=== PATIENT | male | born 1945 | race Caucasian/White ===

== ENCOUNTER → 2017-01-22 | Outpatient (CLI) | payer OTHER ==
[~2017-01-22] VITALS: Ht 180.3 cm; Wt 95.3 kg
[~2017-01-22] MED LIST: ACID REFLUX; AMLODIPINE BESYL5 MG; ASPIRIN PO; ASPIRIN325 PO; AUGMENTIN 875875 M1 PO; CRESTOR40 MG PO; EFFIENT10 MG PO; EXFORGE 5-1601 EACH PO; EXFORGE PO; FISH OIL 1,001000 M1 PO; IBUPROFEN 200200 M1 PO; PACERONE 200 M200 MG PO; RANITIDINE HCL300 M1 PO; TOPROL XL100 MG; TOPROL XL50 MG PO; ZETIA10 MG PO
--- NOTE | ~2017-01-22 | P ---
[facility] [place] [address] PROCEDURE REPORT Name: AMAURY VIERA Room #: REG [facility].#: [id number] Admission: 01/22/17 Attend Phys: Jacob Giron Discharge: Date of : 43 Report #: [id number] THIS REPORT FOR: //name// CC: Jacob Barksdale MD DATE OF SERVICE: 01/22/2017 PROCEDURE PERFORMED: Upper endoscopy with biopsies. HISTORY OF PRESENT ILLNESS: The patient is a 71-year-old male with a Hemoccult positive stool, no history of anemia, no previous history of endoscopy. He does complain of intermittent heartburn, takes Zantac on a p.r.n. basis. He denies any dysphagia. Plan is for EGD and colonoscopy today. DESCRIPTION OF PROCEDURE: The risks and benefits of the procedure were explained to the patient, those risks including but not limited to bleeding, perforation, the risk of sedation. He understood these risks and gave informed consent. Sedation was given using propofol per anesthesia. Next, using a standard Daojiainon upper endoscope, the scope was placed in the patient's mouth and advanced under direct vision through the esophagus, stomach and into the second portion of the duodenum. The larynx was normal in appearance. The upper and mid esophagus was normal in appearance. In the distal esophagus, at the GE junction, there was evidence of grade A erosive esophagitis. No evidence of bleeding. There was a mild diffuse gastritis throughout the stomach. Biopsies were obtained to rule out H. pylori. No evidence of ulcerations or erosions. No bleeding was noted. The pylorus was normal and patent. Mild duodenitis was noted in the duodenal bulb, the first and second portion were all normal. The scope was then withdrawn and the procedure terminated. The patient tolerated the procedure well. IMPRESSION: 1. Grade A erosive esophagitis. 2. Mild diffuse gastritis. 3. Mild duodenitis. 4. Otherwise, normal upper endoscopy. RECOMMENDATIONS: 1. Await biopsy results. 2. Would recommend daily PPI therapy instead of Zantac. 3. We will proceed with colonoscopy next today. [facility] [address] [place] [address] PROCEDURE REPORT Name: AMAURY VIERA Room #: REG [facility] Stephie#: [id number] Admission: 01/22/17 Attend Phys: Jacob Giron Discharge: Date of : 43 Report #: [id number] Thank you for allowing me to participate in his care. By: [id number] Jacob Castrejon MD /nt
--- NOTE | ~2017-01-22 | P ---
[facility] [place] [address] PROCEDURE REPORT Name: AMAURY VIERA [id number] Admission: 01/22/17 Attend Phys: Jacob Giron Discharge: Date of : 43 Report #: [id number] THIS REPORT FOR: //name// CC: Jacob Barksdale MD DATE OF SERVICE: 01/22/2017 PROCEDURE PERFORMED: Colonoscopy with polypectomies. HISTORY OF PRESENT ILLNESS: The patient is a 71-year-old male with a Hemoccult positive stool. He denies any obvious blood in his stools. He has never had a colonoscopy in the past. There is no family history of colon cancer. DESCRIPTION OF PROCEDURE: The risks and benefits of the procedure were explained to the patient, those risks including but not limited to bleeding, perforation and the risk of sedation. He understood these risks and gave informed consent. Sedation was given using propofol per anesthesia. Next, a digital rectal exam was initially performed, which showed small external hemorrhoids, otherwise normal. Next, using a standard Fujinon colonoscope, the scope was placed in the patient's anus and advanced under direct vision to the cecum. The overall prep was excellent. In the cecum, there was a 3 mm sessile polyp. This was removed with cold forceps. Ascending colon, 5 mm sessile polyp removed by snare cautery, otherwise normal. Transverse colon, a 6 mm sessile polyp removed by snare cautery. In the descending colon, there were a total of 5 polyps. These range from 4-8 mm in size. All were removed by snare cautery. In the sigmoid colon, there were a total of 4 more polyps. These range in size from 5-10 mm, all were removed by snare cautery. In the rectum, there was a 3 mm sessile polyp. This was removed by cold forceps. Multiple diverticula were also noted in the sigmoid colon. There was no evidence of bleeding. However, the larger was polyp in the sigmoid colon did have a small amount of blood nearby. The scope was then withdrawn and the procedure terminated. The patient tolerated the procedure well. IMPRESSION: 1. Multiple colonic polyps as described above. 2. Sigmoid diverticulosis. 3. External hemorrhoids. RECOMMENDATIONS: 1. Await biopsy results. 2. Hemoccult positive stools, may have been secondary to gastritis or from larger polyps. 3. Would recommend a repeat colonoscopy in 3 years due to multiple polyps. [address] [address] PROCEDURE REPORT Name: AMAURY VIERA Room #: REG [facility] Card#: [id number] Admission: 01/22/17 Attend Phys: Jacob Giron Discharge: Date of : 43 Report #: [id number] Thank you for allowing me to participate in his care. By: [id number] Jacob Castrejon MD /charlotte
== END | disposition home or self-care (01) ==
LOC: GI 08:23
DX: K63.5 Polyp of colon (principal); K57.30 Diverticulosis of large intestine without perforation or abscess without bleeding; K64.4 Residual hemorrhoidal skin tags; K22.10 Ulcer of esophagus without bleeding; K29.70 Gastritis, unspecified, without bleeding; K29.80 Duodenitis without bleeding; K21.9 Gastro-esophageal reflux disease without esophagitis; I25.10 Atherosclerotic heart disease of native coronary artery without angina pectoris; I10 Essential (primary) hypertension; E78.00 Pure hypercholesterolemia, unspecified; Z95.1 Presence of aortocoronary bypass graft; Z87.891 Personal history of nicotine dependence

== ENCOUNTER → 2017-02-18 | Outpatient (CLI) | payer OTHER ==
[~2017-02-18] VITALS: Ht 180.3 cm; Wt 95.3 kg
--- NOTE | ~2017-02-18 | CATHLAB ---
[facility] [address] [place] [address] INVASIVE PROCEDURE REPORT Name: AMAURY VIERA [facility] [id number] Admission: 02/18/17 Attend Phys: Donald Newell MD Discharge: Date of : 43 Date of Service: 02/18/17 165 Report #: [id number] THIS REPORT FOR: //name// APPROVED REPORT Patient Details Patient Status: Out-Patient Room #: The patient is a 71 year-old male Event Personnel Donald Newell Telegraph Repeater Installer, Debby Starr RN RN, Martina Montana Sandifer, David Monitor, Sindy Ornelas Monitor Procedures Performed Art Access - L radial artery Hemostasis with Hemoband Left Heart Cath Coronaries, Bypass Grafts [id number] [facility] Narrative The patient was brought electively to the Cardiac Catheterization Laboratory and was prepped and draped in a sterile manner. The Left Wrist^ was infiltrated with 1% Lidocaine subcutaneous anesthesia. A TRANSRADIAL SLENDER 6F GLIDESHEATH KIT #[id number] sheath was inserted into the Left Radial Artery^. Coronary angiography was performed using coronary diagnostic catheters. The right coronary system was accessed and visualized with a JR 4 catheter. The left coronary system was accessed and visualized with a JL 4 catheter. The left ventricle was accessed and visualized with a Pigtail catheter. Left ventricular/Aortic Valve gradient assessed via catheter pullback. Left ventriculogram was performed in 30 degree projection. Closure device was deployed with a Fr VascBand. The patient tolerated the procedure well and there were no complications associated with the procedure. There was no hematoma. Fluoro Time: 6.50 minutes Dose: DAP 8915.49 cGycm2 Contrast Type and Amount: Omnipaque 165 ml Coronary Angiography The patient's coronary anatomy is left dominant. [place] Artery Percent Stenosis Left Main: % Prox LAD: 100% % Mid/Distal LAD: % Circumflex: % RCA: 100 % Ramus: % Grafts (Complete if Previous CABG=Yes: Percent Stenosis) [facility] [address] [place] [address] INVASIVE PROCEDURE REPORT Name: AMAURY VIERA Room #: REG [facility]#: [id number] Admission: 02/18/17 Attend Phys: Donald Newell MD Discharge: Date of : 43 Date of Service: 02/18/17 1655 Report #: [id number] Diagnostic Cath LAD Patent sequential SVG with a xxel-hx-wpxb anastomosis to the first diagonal artery and end-to-side anastomosis to mid LAD. No obstructive lesions in vein graft or at anastomotic site. Circumflex Patent stent in proximal left circumflex artery with minimal restenosis. OM1 100% occlusion at ostium. The mid and distal segments are filled via collateral circulation. Right Coronary Patent saphenous vein graft with end-to-side anastomosis to PDA, moderate lesion within the mid segment of vein graft (unchanged from prior procedures), retrograde filling of a moderate sized RPL branch. Left Ventriculography The left ventricle is normal in size with normal contractility. The left ventricular ejection fraction is estimated to be 60-65%. Hemodynamics The aortic pressure is 137/77 mmHg with a mean of 102 mmHg. The left ventricular pressure is 123/15 mmHg with a mean of mmHg. The left ventricular end diastolic pressure is 27 mmHg. There was no gradient across the aortic valve upon pullback. Pullback from the left ventricle to the aorta revealed no gradient across the aortic valve. Conclusion Patent graft system to LAD and RCA. Patent [place] left circumflex stent. Obstruction of first OM artery, with collateral filling of the mid and distal segments. Recommendations Medical Therapy <ELECTRONICALLY SIGNED> By: Donald Newell MD 02/18/175 54 54 Donald Newell MD /INF
--- NOTE | ~2017-02-18 | H ---
[facility] [place] [address] HISTORY AND PHYSICAL Name: AMAURY VIERA [id number] Admission: 02/18/17 Attend Phys: Donald Newell MD Discharge: Date of : 43 Report #: [id number] THIS REPORT FOR: //name// CC: Abhishek Newell DATE OF SERVICE: 02/18/2017 INDICATION: CAD. HISTORY OF PRESENT ILLNESS: This is a 71-year-old gentleman presenting for a cardiac catheterization. He has a history of CABG in 1998 with an [place]. In 2012, he presented with unstable angina. The vein graft to the left circumflex artery was occluded. A bare metal stent was placed into the proximal left circumflex artery. The first obtuse marginal artery is occluded, but the distal segment filled via collateral blood flow. The patient also has a history of hypertension, hypercholesterolemia and pericardial effusion. He did undergo previous pericardiocentesis and followup study revealed no further episodes of pericardial effusion. Recently, he has noted more fatigue and diminished energy. His exercise regimen has decreased in half, only doing half as much. He has not had any chest pains, but has noticed some discomfort in his upper back and neck area. A stress test revealed lateral wall ischemia. It is unclear if this is related to problems with the first OM only, but also involving the left circumflex artery distribution. We discussed the pros and cons of a cardiac catheterization versus medical therapy. The patient is concerned about his diminished energy and we will proceed with a cardiac catheterization. PAST MEDICAL HISTORY: CABG in 1998. Cardiac catheterization in November 2012 revealed patent sequential vein graft to the first diagonal artery and LAD, patent vein graft to the RCA. Angioplasty performed with placement of a bare metal stent into the proximal left circumflex artery. The OM1 is occluded with collateral blood flow. Prior history pericardial effusion, status post pericardiocentesis. Followup studies revealed no further effusion. Nuclear stress test from 12/2016 reveals lateral wall ischemia. The echo reveals normal LV function with mild MR. History of hypertension and hypercholesterolemia. ALLERGIES: Include ALTACE with a cough. MEDICATIONS AT HOME: Include amlodipine 5 mg, valsartan 160 mg daily, aspirin once a day, Zetia 10 mg, metoprolol 50 mg daily, Crestor 40 mg daily. SOCIAL HISTORY: Negative for tobacco use. FAMILY HISTORY: Negative for premature CAD. [facility] [address] [place] [address] HISTORY AND PHYSICAL Name: AMAURY VIERA Room #: REG [facility]#: [id number] Admission: 02/18/17 Attend Phys: Donald Newell MD Discharge: Date of : 43 Report #: [id number] REVIEW OF SYSTEMS: A full 10-point review of systems was performed. Only the pertinent positives and negatives are described in the HPI. PHYSICAL EXAMINATION: VITAL SIGNS: Blood pressure is 130/70, heart rate is 60 beats per minute. GENERAL APPEARANCE: This is a well-developed, well-nourished male in no acute respiratory distress. HEAD AND EYES: Normocephalic. Sclerae are anicteric. ENT: Oral mucosa moist. NECK: Supple. LUNGS: Clear to auscultation. CARDIAC: Regular rate and rhythm, S1, S2 positive. ABDOMEN: Soft, nontender. Bowel sounds positive. EXTREMITIES: No major joint deformities. No edema. ECG reveals sinus rhythm, right bundle branch block. ASSESSMENT AND PLAN 1. Coronary artery disease/coronary artery bypass grafting/myocardial infarction/percutaneous coronary intervention, now presenting with complaints of fatigue and diminished energy. Found to have a positive ischemic burden on a pharmacologic nuclear stress test. It is difficult to assess his functional capacity, and he is now presenting with symptoms. The plan is to proceed with a cardiac catheterization. All questions were answered. 2. Hypertension, continue with medications. 3. Hypercholesterolemia, continue with statin therapy. <ELECTRONICALLY SIGNED> By: Donald Newell MD 02/22/17 0806 0912 1029 Donald Newell MD /nt
--- NOTE | ~2017-02-18 | EKG ---
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: [place] : 1945 Requested By: Donald Newell Order Number: [id number] MD: Wayne Bermudez Measurements Intervals [place] Rate: 64 P: 56 IN: 158 QRS: 19 QRSD: 147 T: 20 QT: 442 QTc: 456 Interpretive Statements Sinus rhythm Right bundle branch block Baseline wander in lead(s) V5 Compared to ECG 12/09/2012 07:42:56 Right bundle-branch block now present Electronically Signed On 02-20-2017 11:57:24 CDT by Wayne Bermudez [email or web address] <ELECTRONICALLY SIGNED> By: Wayne Bermudez MD, [facility] 02/20/17 1157 5 5 Wayne Bermudez MD, [facility] /EPI
[2017-02-18 07:06] VITALS: BP 149/69
[2017-02-18 07:21] LABS: HEMATOCRIT 46.4 % (42.0-52.0); HEMOGLOBIN 15.7 gm/dL (14.0-18.0); MCH 30.3 pg (26.0-34.0); MCHC 33.8 g/dL (28.0-37.0); MCV 89.6 fL (80.0-100.0); RBC 5.18 mil/uL (4.50-6.00); RDW 14.2 % (10.5-14.5)
[2017-02-18 07:34] LABS: CALCIUM 8.9 mg/dL (8.5-10.1); POTASSIUM 3.4 mmol/L (3.5-5.1)
== END ==
LOC: CATH 06:40
PROVIDERS: Internal Medicine Cardiovascular Disease
DX: I25.10 Atherosclerotic heart disease of native coronary artery without angina pectoris (principal); I25.2 Old myocardial infarction; Z95.1 Presence of aortocoronary bypass graft; I10 Essential (primary) hypertension; E78.00 Pure hypercholesterolemia, unspecified; K21.9 Gastro-esophageal reflux disease without esophagitis; I48.91 Unspecified atrial fibrillation; I31.9 Disease of pericardium, unspecified; E66.9 Obesity, unspecified

== ENCOUNTER → 2019-09-26 | Outpatient (CLI) | payer OTHER | LOC: SJCVC 10:24 | DX: I45.10 Unspecified right bundle-branch block (principal); R94.31 Abnormal electrocardiogram [ECG] [EKG]; I25.10 Atherosclerotic heart disease of native coronary artery without angina pectoris; I10 Essential (primary) hypertension; I48.91 Unspecified atrial fibrillation; E78.00 Pure hypercholesterolemia, unspecified; R60.9 Edema, unspecified ==

== ENCOUNTER → 2020-03-26 | Outpatient (CLI) | payer OTHER | LOC: SJCVCIMAG 06:17 | PROVIDERS: ATTEND Internal Medicine Cardiovascular Disease | DX: I08.3 Combined rheumatic disorders of mitral, aortic and tricuspid valves (principal); I27.20 Pulmonary hypertension, unspecified; I48.91 Unspecified atrial fibrillation; I25.810 Atherosclerosis of coronary artery bypass graft(s) without angina pectoris; I25.2 Old myocardial infarction; Z95.1 Presence of aortocoronary bypass graft; Z95.5 Presence of coronary angioplasty implant and graft ==

== ENCOUNTER → 2020-09-25 | Outpatient (CLI) | payer OTHER | LOC: SJCVC 09:32 | PROVIDERS: ATTEND Internal Medicine Cardiovascular Disease | DX: I45.10 Unspecified right bundle-branch block (principal); I25.10 Atherosclerotic heart disease of native coronary artery without angina pectoris; R94.31 Abnormal electrocardiogram [ECG] [EKG]; I10 Essential (primary) hypertension; R60.9 Edema, unspecified; E78.00 Pure hypercholesterolemia, unspecified; Z79.82 Long term (current) use of aspirin; Z79.899 Other long term (current) drug therapy; Z95.1 Presence of aortocoronary bypass graft; Z90.89 Acquired absence of other organs; Z87.891 Personal history of nicotine dependence ==

== ENCOUNTER → 2021-03-26 | Outpatient (CLI) | payer OTHER | LOC: SJCVCIMAG 08:14 | PROVIDERS: ATTEND Internal Medicine Cardiovascular Disease | DX: I45.10 Unspecified right bundle-branch block (principal); I49.3 Ventricular premature depolarization; R42 Dizziness and giddiness; I25.10 Atherosclerotic heart disease of native coronary artery without angina pectoris; I10 Essential (primary) hypertension; R60.9 Edema, unspecified; E78.00 Pure hypercholesterolemia, unspecified; I25.2 Old myocardial infarction; M19.90 Unspecified osteoarthritis, unspecified site; Z95.1 Presence of aortocoronary bypass graft; Z90.49 Acquired absence of other specified parts of digestive tract; Z88.8 Allergy status to other drugs, medicaments and biological substances; Z79.82 Long term (current) use of aspirin; Z79.899 Other long term (current) drug therapy; Z87.891 Personal history of nicotine dependence; Z82.49 Family history of ischemic heart disease and other diseases of the circulatory system ==